=== PATIENT | male | born 1955 | race Caucasian/White ===

== ENCOUNTER 2017-10-23 17:32 | Emergency (ER) | payer BC, OTHER ==
[~2017-10-23] VITALS: Ht 188 cm; Wt 104.0 kg
[2017-10-23 17:35] VITALS: TEMP 36.6; Ht 188 cm; Wt 104.0 kg
[2017-10-23] MEDS ORDERED: GELATIN SPONGE 12-7MM ONE (17:54)
[2017-10-23] MEDS ORDERED: CEPH500C PO (18:13)
--- NOTE | 2017-10-23 18:14 | EMERGENCY ROOM VISIT NOTE ---
ED Visit Note First contact with patient: 17:37 Chief Complaint: "cut finger" History of Present Illness: This patient is a 61 year old male who presents to the Emergency Department via private vehicle for evaluation of their L index finger laceration/avulsion. Patient sustained the laceration while operating a utility knife attempting to cut moulding. They report a moderate amount of bleeding initially. They deny any numbness or tingling into the distal extremity. They report no decreased range of motion of the affected digit. Patient rates his current discomfort as a 0/10. Patient's Tetanus status is currently up-to-date. Medications: as noted below Allergies: none PMH: no pertinent SHx: pt. lives locally ROS: All pertinent positive and negative review of systems are appropriately documented in the History of Present Illness. Physical Exam: VITAL SIGNS - Vital signs and nursing notes were reviewed. Stable. GENERAL - 61-year-old male appearing his stated age who is in no acute distress. Communicates well with provider and answers questions appropriately. SKIN - There is a 1.5 cm x 1.5 cm skin avulsion overlying the dorsal aspect of the patient's left second PIP digit. The edges do not gape apart with traction. No foreign bodies appreciated. Upon further examination there are no deep structures including vessel, tendon injury, or bony structures appreciated. The tendon is slightly visible, however with full range of motion of the left index finger there is no appreciable tendon involvement. There is no active bleeding noted. MUSCULOSKELETAL - Laceration as described above. +5/5 strength appreciated of the affected digit. Full range of motion of the affected digit. He is neurovascularly intact in the left second digit. ED Course: Patient was seen and evaluated by myself. Risks and benefits of performing primary wound closure versus no repair were discussed with the patient who verbalizes understanding. Verbal consent was obtained prior to performing the procedure. He has no pain. He prefers to have the wound cleansed without anesthetization. This is reasonable. The wound was copiously irrigated with normal saline and Betadine. After thorough cleansing, Gelfoam was applied. Hemostasis achieved well. Patient tolerated the procedure well. No complications were met. A metal splint was applied to the finger for comfort. He will be given Keflex for infection prophylaxis given the depth to the tendon but no tendon involvement. This is for precaution. Although he did exhibit full range of motion and strength of the left second digit I will recommend follow-up with a hand specialist in the event that he has decreased range of motion difficulties with finger in regard to musculoskeletal etiology. He certainly is to return with signs of infection. Patient educated on worrisome symptoms for return visit to the Emergency Department. Patient discharged to home in good condition. In the evaluation and treatment of this patient, the following differential diagnoses were considered: Finger Fracture, Finger Dislocation, Finger Sprain, Finger Contusion, [place] Finger, or Mallet Finger. Current/Historical Medications Scheduled Cephalexin Monohydrate (Keflex), 500 MG PO TID Vital Signs Date Time Temp Pulse Resp B/P (MAP) Pulse Ox O2 Delivery O2 Flow Rate FiO2 10/23/17 18:30 78 20 140/86 96 10/23/17 17:35 36.6 82 18 135/93 97 Room Air Departure Information Impression Primary Impression: Avulsion of skin of index finger Dispostion Home / Self-Care Condition GOOD Prescriptions Cephalexin Monohydrate (Keflex) 500 Mg Cap 500 MG PO TID for 5 Days, #15 CAP Prov: Pietro Greene PA-C 10/23/17 Referrals Aline Rendon M.D. (PCP) Obinna Torres MD Patient Instructions My [facility] Additional Instructions You have been treated in the Emergency Department today for your index finger skin Avulsion. Leave the GELFOAM and dressing in place for the next 48 hours. Keep the dressing clean and dry until time for removal. To remove the GELFOAM dressing, remove the overlying tape and then soak the wound in warm water until the piece of GELFOAM can be easily removed. Keflex every 8 hours for 5 days to help prevent infection Proper wound care is essential for adequate wound healing and infection prevention. You can shower and clean the wound with soap and water. Do not scour over the wound, pat dry with a towel. You can use an antibiotic ointment with a dressing/bandage over the wound for the next 3-4 days (after 48 hr clifford) . After this time you may leave the wound dry and open to the air. -first 48 hrs. Leave dressing and splint in place -day 3-7. Minimal amount of ointment in place with dressing and splint -day 8-14. NO ointment. Just dry dressing and splint Look for signs of infection of the wound including: increased pain, swelling, foul discharge, streaking, or increased temperature. If any of these are noticed you should return to the Emergency Department for further assessment and treatment. As with any laceration you may have received nerve damage to the surrounding tissues. This damage could be permanent. For pain control, you can use the following [id number] medicines: - Regular strength (325mg/tab) Tylenol (acetaminophen) 2 tabs every 4-6 hours as needed. Do not exceed 12 tablets in a 24 hour period. Avoid taking more than 3 grams (3000 mg) of Tylenol per day. This includes any other sources of acetaminophen you may take on a regular basis. - Regular strength (200 mg/tab) Advil (ibuprofen) 1-2 tabs every 4-6 hours as needed. Do not exceed a dose of 3200 mg per day. Return to the emergency department if your symptoms worsen despite treatment course outlined above.
[2017-10-23 18:30] VITALS: BP 140/86; PULSE 78; O2SAT 96
== END 2017-10-23 18:32 | disposition home or self-care (01) ==
LOC: C.EDB 17:33 → C.EDD 18:32
DX: S61.201A Unspecified open wound of left index finger without damage to nail, initial encounter (principal); W26.0XXA Contact with knife, initial encounter